=== PATIENT | male | born 1950 | race Native Hawaiian/Other Pacific Islander ===

== ENCOUNTER 2018-06-09 06:01 | Day surgery (SDC) | payer MEDICARE ==
[2018-06-08 08:30] VITALS: BMI 31.8
[2018-06-09 07:09] LABS: BASO # 0.06 K/mm3 (0.0-2.0); BASO % 1.1 % (0.0-3.0); EOS # 0.2 (0.0-0.7); EOS % 4.1 % (1.5-5.0); GRAN # 3.34 (1.4-6.5); GRAN % 59.8 % (50.0-68.0); HEMOGLOBIN 14.5 g/dL (14.0-18.0); LYMPH # 1.5 (1.2-3.4); LYMPH % 26.2 % (22.0-35.0); MEAN CELL VOLUME 87.7 fl (80.0-105.0); MEAN CORPUSCULAR HEMOGLOBIN 29.2 pg (25.0-35.0); MEAN CORPUSCULAR HGB CONC 33.3 g/dl (31.0-37.0); MEAN PLATELET VOLUME 10.8 fl (7.0-11.0); MONO # 0.5 (0.1-0.6); MONO % 8.8 % (1.0-6.0); RBC 4.96 10^6/uL (3.5-6.1); RED CELL DISTRIBUTION WIDTH 13.6 % (11.5-14.5); WHITE BLOOD COUNT 5.6 10^3/uL (4.5-11.0)
[2018-06-09 07:14] LABS: INR 1.06; PARTIAL THROMBOPLASTIN TIME 35.7 Seconds (25.1-36.5); PROTHROMBIN TIME 12.2 SECONDS (9.4-12.5)
[2018-06-09 07:15] LABS: BLOOD UREA NITROGEN 16 mg/dL (7-21); CALCIUM 9.4 mg/dL (8.4-10.5); GFR NON-AFRICAN AMERICAN > 60
[2018-06-09] MEDS ORDERED: Iohexol 350mgl/ml 50 ML ONE (07:22)
[2018-06-09] MEDS ORDERED: Iodixanol 320 MG/ML 100 ML BOTTLE IV ONE ×2 (07:22→08:32)
[2018-06-09] MEDS ORDERED: Lidocaine 2% Inj (20ml) ONE (07:22)
[2018-06-09] MEDS ORDERED: Iodixanol 320 MG/ML 200 ML BOTTLE IV ONE (07:22)
[2018-06-09] MEDS ORDERED: Phenylephrine 10 mg/ml Inj ONE (07:23)
[2018-06-09] MEDS ORDERED: Nitroglycerin 50mg in D5W 0 MG/0 ML BOTTLE IV ONE (07:24)
[2018-06-09] MEDS ORDERED: Midazolam 2 MG/2 ML VIAL ONE ×2 (08:04→08:08)
[2018-06-09] MEDS ORDERED: Eptifibatide 0.75 mg/ml 75 MG/100 ML BOTTLE IV ONE (08:19)
[2018-06-09] MEDS ORDERED: Sodium Chloride 0.9% 1,000 ML IV SCH (08:45)
--- NOTE | 2018-06-09 10:26 | CARDCATH ---
PROCEDURE DATE: 06/09/2018 HISTORY: The patient is a 67-year-old male who presented with an abnormal stress test. He suffers from diabetes mellitus, hypertension and hypercholesterolemia. He has been noncompliant with medical advice. Because of this, cardiac catheterization was recommended. The patient has been suffering from exertional shortness of breath and chest pain. PROCEDURE: Left heart catheterization with coronary aortography, left ventriculogram followed by percutaneous transluminal coronary angioplasty and stent of an left anterior descending. The right femoral artery was cannulated with a 6-[place] sheath. There were no complications. I performed moderate sedation which included the presence of an independent trained observer that assisted in monitoring the patient's level of consciousness and physiologic status. After administration of Versed and fentanyl, my intra service time was 30 minutes. The findings on catheterization revealed a left ventricle that contracted normally. Estimated ejection fraction of 60-65%. His coronary anatomy revealed a right dominant circulation. The RCA revealed diffuse atherosclerosis without critical lesions. The left main artery was unremarkable. The circumflex artery and obtuse marginal branches revealed intimal irregularities without critical lesions. The LAD was diffusely diseased with 80% stenosis in the midportion. The patient was started on intravenous Angiomax and given two doses of Integrilin. On the fluoroscopic guide, the guiding catheter was placed in the ostium of the left main artery. An 0.014 ATW wire was used to cross the critical lesion in the LAD. A 3.5 x 15 mm drug-eluting stent was placed and deployed in the mid LAD lesion at 14 atmospheres of pressure. Postdilatation was performed with a 4.0 x 8 mm noncompliant balloon at 12 atmospheres of pressure. After balloon deflation removal, there was a little haziness in the distal portion of the stent. A 3.5 x 8 mm drug-eluting stent was placed and deployed at 14 atmospheres of pressure. Repeat coronary aortography revealed an excellent result with no residual stenosis and JOHN III flow. The patient tolerated the procedure well. Angio-Seal was used to close the femoral artery site. In summary, the procedure revealed diffuse coronary atherosclerosis with 80% stenosis in the mid LAD. PTCA and stent was successful for resolution of the critical lesion with drug-eluting stents. Cardiac catheterization revealed single-vessel CAD with normal LV function. Given these findings, the patient will need to remain on aspirin indefinitely and Plavix for at least a year and undergo a strict cardiac risk reduction program. Sherwin Mayfield MD
--- NOTE | 2018-06-09 11:59 | CARD ---
APPROVED REPORT Date of service: 06/09/2018 EKG Measurement Heart [id number] <Conclusion> Sinus bradycardia with 1st degree AVB Possible IMI, age unknown RVCD LVH by voltage NSSTW changes
--- NOTE | 2018-06-09 18:08 | HP ---
DATE OF EXAM: 06/09/2018 He was called down to the botany laboratory assistant by Dr. Mayfield to see status post cath with stent placement. HISTORY OF PRESENT ILLNESS: He is a 67-year-old white male who presents with a recent stress test found to be abnormal and one for cardiac catheterization and stent placement today. He has some abdominal discomfort from time to time. He has had left knee surgery, bilateral cataracts. He has a history of hypertension. He wears glasses. Alert and oriented x3. He is very pleasantly, comfortably in bed in a gurney. He has no acute vision changes or hearing changes. No sore throat. He does have shortness of breath and chest discomfort from time to time. No abdominal pain. No leg pain. PAST MEDICAL HISTORY: Diabetes, high cholesterol, hypertension. FAMILY HISTORY: Cancer. His dad had colon cancer. PHYSICAL EXAMINATION: VITAL SIGNS: He has 98 temp, 89 pulse, 20 respiratory rate, 95% O2 saturation. HEENT: Head is atraumatic, normocephalic. Throat is moist. HEART: Regular rate. LUNGS: Decreased breath sounds. ABDOMEN: Soft, obese. EXTREMITIES: No edema. SKIN: okay. LABORATORY DATA: He had a 5.6 white count, 14.5 hemoglobin, 43.5 hematocrit, with a 282 platelets. INR was 1.06. He has 140 sodium, potassium 3.9, BUN 16, creatinine 1.1, GFR is greater than 60, sugar is 125. Calcium is 9.4. MEDICATIONS: He is currently on Ecotrin, , Plavix, and IV fluids. IMPRESSION AND PLAN: He will be kept overnight. He has coronary artery disease with stent placement. He has high cholesterol, hypertension. Hopefully, he will improve. If he does well tomorrow morning, we will discharge him. I will see him tomorrow. If he does well, we will discharge him tomorrow. His cardiac cath was done placement for CAD. Edgardo Monroy DO [facility]
[2018-06-09 19:45] VITALS: RESP 20
[2018-06-10 06:21] VITALS: BP 153/96; PULSE 62; TEMP 97.8; O2SAT 94
[2018-06-10 07:24] LABS: BASO # 0.03 K/mm3 (0.0-2.0); BASO % 0.5 % (0.0-3.0); EOS # 0.2 (0.0-0.7); EOS % 3.1 % (1.5-5.0); GRAN # 4.59 (1.4-6.5); GRAN % 71.8 % (50.0-68.0); HEMOGLOBIN 13.8 g/dL (14.0-18.0); LYMPH # 1.1 (1.2-3.4); LYMPH % 16.9 % (22.0-35.0); MEAN CELL VOLUME 87.7 fl (80.0-105.0); MEAN CORPUSCULAR HEMOGLOBIN 29.2 pg (25.0-35.0); MEAN CORPUSCULAR HGB CONC 33.3 g/dl (31.0-37.0); MEAN PLATELET VOLUME 10.3 fl (7.0-11.0); MONO # 0.5 (0.1-0.6); MONO % 7.7 % (1.0-6.0); RBC 4.72 10^6/uL (3.5-6.1); RED CELL DISTRIBUTION WIDTH 13.6 % (11.5-14.5); WHITE BLOOD COUNT 6.4 10^3/uL (4.5-11.0)
[2018-06-10 07:42] LABS: BLOOD UREA NITROGEN 13 mg/dL (7-21); CALCIUM 9.1 mg/dL (8.4-10.5); GFR NON-AFRICAN AMERICAN > 60
--- NOTE | 2018-06-10 09:17 | DS ---
HISTORY OF PRESENT ILLNESS: He is resting comfortably in bed. He tells me he slept well. No chest pain, no shortness of breath. No abdominal pain. He walks a little bit. The right leg is okay. He is status post cardiac catheterization, stent placement with Dr. Mayfield yesterday. He is comfortable. PHYSICAL EXAMINATION: VITAL SIGNS: He has 97.8 temperature, 60 pulse, 153/96 blood pressure, a little high and make sure he gets the blood pressure meds this morning, 20 respiratory rate, 94% O2 sat on room air. HEENT: Head is atraumatic, normocephalic. HEART: Regular rate. LUNGS: Decreased breath sounds but clear. ABDOMEN: Soft, obese. EXTREMITIES: No edema. MEDICATIONS: He is going to go home on Ecotrin, Lipitor, Plavix. He will go back on his Zocor, glipizide, Glucophage and Dr. Mayfield will discuss his blood pressure meds with him. He has a 6.4 white count, 13.8 hemoglobin, 41.4 hematocrit with 259 platelets. He has 140 sodium, potassium 3.8, BUN 30, creatinine 1, GFR is greater than 60, sugar is 106, calcium is 9.1. He did very well. He could be discharged after Dr. Mayfield sees him this morning and follow up with Dr. Mayfield in the next week plus his primary care doctor. The patient had CAD. He had a cardiac cath with Dr. Mayfield and he stented him. Edgardo Monroy DO
--- NOTE | 2018-06-10 10:50 | PN ---
DATE: 06/10/2018 SUBJECTIVE: The patient is chest pain free status post PTCA and stent of a lesion in the LAD with a drug-eluting stent. PHYSICAL EXAMINATION: VITAL SIGNS: Blood pressure is 138/52, the heart rate is in the 60s. NECK: Negative JVD. LUNGS: Without rales. HEART: With S1, S2. EXTREMITIES: Without edema. Groin site is stable. LABORATORY DATA: Unremarkable. IMPRESSION: 1. Stable post percutaneous transluminal coronary angioplasty and stent. 2. Diabetes mellitus. 3. Hypertension. 4. Hypercholesterolemia. 5. Recurrent noncompliance with medical advice. Given these findings, the patient is stable for discharge. He needs to go home on aspirin, Plavix and statin therapy. I have discussed with the patient about the need for cardiac risk reduction program. Followup instructions have been given to the patient in detail. Sherwin Mayfield MD
== END 2018-06-10 11:11 | disposition home or self-care (01) ==
LOC: CATH 06:01 → 2RSO 09:00 → CATH 06-10 11:11
PROVIDERS: ATTEND Internal Medicine Cardiovascular Disease
DX: I25.10 Atherosclerotic heart disease of native coronary artery without angina pectoris (principal); I10 Essential (primary) hypertension; E11.36 Type 2 diabetes mellitus with diabetic cataract; E78.00 Pure hypercholesterolemia, unspecified; Z79.82 Long term (current) use of aspirin; Z79.84 Long term (current) use of oral hypoglycemic drugs; Z91.19 Patient's noncompliance with other medical treatment and regimen
CPT/HCPCS: 36415; 80048; 85025; 85610; 85730; 86850; 86900; 93005; 93458; 99152; 99153; C1725; C1760; C1769 ×2; C1874 ×2; C1887; C2629; C9600; J0583; J1327; J1644; J2250; J3010; J7030; J7040; Q9966; Q9967